=== PATIENT | female | born 1975 | race Asian ===

== ENCOUNTER 2019-06-27 13:46 | Emergency (ER) | payer OTHER ==
[~2019-06-27] VITALS: Ht 152.4 cm; Wt 84.1 kg
[~2019-06-27 13:46] MED LIST: ALBU8.5H8 IH; AMLO10TA7 PO; ASPI-556 PO; ATEN50TA PO; FURO20 PO; LOSA-88 PO; METF-445 PO; PRAV20TA4 PO
[2019-06-27] MEDS ORDERED: TIOT185 IH (14:08)
[2019-06-27] MEDS ORDERED: METO50 PO (14:08)
[2019-06-27] MEDS ORDERED: ADV100 IH (14:08)
[2019-06-27 14:12] LABS: GLUCOSE,POINT OF CARE 187 MG/DL (70-110)
[2019-06-27] MEDS ORDERED: IBUPROFEN 600 MG TABLET PO ONE (14:15)
[2019-06-27] MEDS ORDERED: ACETAMINOPHEN 500 MG TABLET PO ONE (14:15)
[2019-06-27 16:48] LABS: INFLUENZA TYPE A NEGATIVE FOR TYPE A (NEGATIVE); INFLUENZA TYPE B NEGATIVE FOR TYPE B (NEGATIVE)
[2019-06-27 16:51] VITALS: BP 159/102
== END 2019-06-27 18:00 | disposition home or self-care (01) ==
LOC: EMS 13:49
DX: J18.9 Pneumonia, unspecified organism (principal); E11.9 Type 2 diabetes mellitus without complications; I11.0 Hypertensive heart disease with heart failure; I50.9 Heart failure, unspecified; J44.9 Chronic obstructive pulmonary disease, unspecified; Z79.899 Other long term (current) drug therapy; Z79.84 Long term (current) use of oral hypoglycemic drugs; Z79.82 Long term (current) use of aspirin; Z88.8 Allergy status to other drugs, medicaments and biological substances
CPT/HCPCS: 87804